=== PATIENT | male | born 1935 | race Caucasian/White ===

== ENCOUNTER 2018-04-05 07:50 | Day surgery (SDC) | payer MEDICARE, SELFPAY ==
[2018-04-05] VITALS (8 sets, daily range): BP systolic 86–164; BP diastolic 50–69; PULSE 49–58; RESP 16–18; TEMP 36.4–36.8; O2SAT 95–100; BMI 26.8
--- NOTE | 2018-04-05 | LES_PTH ---
PATIENT: JACOB JOLLY LOC: [facility] [place] U#:[id number] AGE/SX: 82/M ROOM: RE04/05/[address]: Dr. Marcos Newell MD : [id number] BED: DIS: 04/05/2018 SPEC #: [id number] RECD: 04/05/18 10:01 STATUS: WILSON REOpal #: [id number] ENEIDA: 04/05/18 00:[address]: Marcos Newell DEPT: SURGICAL PATHOLOGY RECD BY: Precious Pan ENTERED: 04/05/18 10:54 SP TYPE: Lesion OTHR DR: Out of Town Doctor Tissues: Skin of face, NOS Procedures: Frozen Section (charge) Surgery Specimen Level IV HEADER OPERATION: Excision of 3.5 cm x 2 cm ulcerated lesion of right mandaeism PRE-OP DIAGNOSIS: Ulcerated nonhealing lesion of right mandaeism TISSUE SUBMITTED: Ulcerated lesion right mandaeism FROZEN SECTION DIAGNOSIS Ulcerated lesion, right mandaeism, biopsy: Basal cell carcinoma, completely excised. SHAMA:kemal 04/05/18 MICROSCOPIC DIAGNOSIS Ulcerated lesion, right mandaeism, excisional biopsy: Basal cell carcinoma, completely excised. Mild actinic keratosis and solar elastosis. SHAMA:kemal 04/08/18 MICROSCOPIC DESCRIPTION Slides are reviewed. GROSS DESCRIPTION Received fresh for frozen section diagnosis labeled with the patient's name is a specimen designated ulcerated lesion right mandaeism. The specimen consists of a piece of workman-white skin ellipse measuring 3 x 1.8 x 0.3 cm. The specimen is inked, serially sectioned and submitted entirely for frozen section diagnosis in three cassettes. Cassette 1 contains the tips of skin ellipse. / SHAMA:kemal 04/05/18 TC:0 CPT: 66297, 24596
[2018-04-05 08:56] LABS: Bedside Glucose 118 mg/dL (70-110)
[2018-04-05] MEDS: Bacitracin 500 UNITS/GM PACKET (10:02)
--- NOTE | 2018-04-05 10:26 | PCM.OPRPT ---
Problem List (1) Basal cell carcinoma (BCC) of skin of face Status: Chronic Qualifiers: Basal cell carcinoma face location: other part of face Qualified Code(s): C44.319 - Basal cell carcinoma of skin of other parts of face Report of Operation Date of Procedure: 04/05/18 Pre-Operative Diagnosis: non-healing ulcerated lesion of right restorationist Post-Operative Diagnosis: basal cell carcinoma of right restorationist 2.0 x 3.5 cm Surgery/Procedure Performed:: Excision of malignant lesion of the face 2.0x3.5 cm Description of Surgical Findings:: Jhonny is an 82-year-old male who presents for evaluation of a nonhealing ulcerated lesion over the right restorationist. This is been nonhealing over the last several years and frequently would bleed onto his pillow. He reports a history of skin cancers which is attributed to his radiation treatment for acne in childhood and given the nonhealing nature of this lesion is suspicious appearance excision was advised for both relief of the chronic getting an ulceration and definitive evaluation and he was eager to proceed. The risks, alternatives, potential benefits, and complications were discussed at length and any questions answered to the patient and/or caregiver's satisfaction. Witnessed informed consent was obtained in the office, and the patient and/or caregiver was agreeable to proceed. Procedure went as follows: The patient was then offended proud of holding brought to the operating room was placed under monitored anesthesia care. When appropriate anesthesia obtained, the right restorationist was prepped and draped in usual sterile fashion. Using 1% lidocaine with 100,000 epinephrine the area was then injected with a total of 4 cc. After lying for vasoconstriction the large ulcerated lesion of the right restorationist was then marked in an ellipsoid pattern encompassing the ulcerated lesion that totaled 2 x 3.5 cm in size. This was then sharply incised with 15 blade scalpel and using an iris alert scissor the lesion then undermined over the temporalis fascia and excised. This was sent as pathologic specimen which was firm to be basal cell carcinoma that appeared completely excised. The wound was then undermined to allow for tension-free closure and then closed deeply with interrupted 3-0 Vicryl sutures. The skin was then closed with interrupted 4-0 Prolene sutures and bacitracin ointment applied. This completed the procedure and the patient was returned to recovery having tolerated the procedure well. Type of Anesthesia:: General Anesthesiologist: Marcos Mckeon Special Medications: none Specimen's removed: basal cell carcinoma of right restorationist Drains: none Estimated Blood Loss (mL): 0 mL Fluids Replaced: 700 mL Grafts/Implants Used: none - Complications none - Admit VTE Documentation VTE Present on Admission: No VTE Mechan Device Prophylaxis: None VTE Pharm Prophylaxis ordered?: No Reason prophylaxis not ordered:: Procedure Not Indicated
--- NOTE | 2018-04-05 10:31 | OP.PCM_ITS ---
Problem List (1) Basal cell carcinoma (BCC) of skin of face Status: Chronic Qualifiers: Basal cell carcinoma face location: other part of face Qualified Code(s): C44.319 - Basal cell carcinoma of skin of other parts of face Report of Operation Date of Procedure: 04/05/18 Pre-Operative Diagnosis: non-healing ulcerated lesion of right quaker Post-Operative Diagnosis: basal cell carcinoma of right quaker 2.0 x 3.5 cm Surgery/Procedure Performed:: Excision of malignant lesion of the face 2.0x3.5 cm Description of Surgical Findings:: Jhonny is an 82-year-old male who presents for evaluation of a nonhealing ulcerated lesion over the right quaker. This is been nonhealing over the last several years and frequently would bleed onto his pillow. He reports a history of skin cancers which is attributed to his radiation treatment for acne in childhood and given the nonhealing nature of this lesion is suspicious appearance excision was advised for both relief of the chronic getting an ulceration and definitive evaluation and he was eager to proceed. The risks, alternatives, potential benefits, and complications were discussed at length and any questions answered to the patient and/or caregiver's satisfaction. Witnessed informed consent was obtained in the office, and the patient and/or caregiver was agreeable to proceed. Procedure went as follows: The patient was then offended proud of holding brought to the operating room was placed under monitored anesthesia care. When appropriate anesthesia obtained, the right quaker was prepped and draped in usual sterile fashion. Using 1% lidocaine with 100,000 epinephrine the area was then injected with a total of 4 cc. After lying for vasoconstriction the large ulcerated lesion of the right quaker was then marked in an ellipsoid pattern encompassing the ulcerated lesion that totaled 2 x 3.5 cm in size. This was then sharply incised with 15 blade scalpel and using an iris alert scissor the lesion then undermined over the temporalis fascia and excised. This was sent as pathologic specimen which was firm to be basal cell carcinoma that appeared completely excised. The wound was then undermined to allow for tension-free closure and then closed deeply with interrupted 3-0 Vicryl sutures. The skin was then closed with interrupted 4-0 Prolene sutures and bacitracin ointment applied. This completed the procedure and the patient was returned to recovery having tolerated the procedure well. Type of Anesthesia:: General Anesthesiologist: Marcos Mckeon Special Medications: none Specimen's removed: basal cell carcinoma of right quaker Drains: none Estimated Blood Loss (mL): 0 mL Fluids Replaced: 700 mL Grafts/Implants Used: none - Complications none - Admit VTE Documentation VTE Present on Admission: No VTE Mechan Device Prophylaxis: None VTE Pharm Prophylaxis ordered?: No Reason prophylaxis not ordered:: Procedure Not Indicated
--- NOTE | 2018-04-05 10:34 | DCINST_ITS ---
- Discharge Diagnoses Current Active Problems: Current Active and Chronic Problems Basal cell carcinoma (BCC) of skin of face (Chronic) You will use the following diet at home:: No restrictions Discharge Activity: Return to Normal Activity Call your doctor if your incision/area has: Continuous Slow Oozing, Foul Smelling Discharge, Swelling at the incision site Call your doctor if you observe: Fever of 101 or Higher, Uncontrolled pain Allergies/Adverse Reactions: Allergies Penicillins [PCN] Allergy (Verified 04/05/18 08:29) Rash Medications to take at Discharge Allopurinol 100 mg PO DAILY 04/03/18 Amlodipine [Norvasc] 5 mg PO DAILY 04/03/18 Cholecalciferol (Vitamin D3) [Vitamin D3] 5,000 unit PO QODAY 04/03/18 Ibuprofen 200 mg PO PRN PRN 04/03/18 Insulin Human 75/25 [Humalog Mix 75-25 Kwikpen] 16 unit SQ BID 04/03/18 Loperamide [Imodium] 2 mg PO Q2H PRN PRN 04/03/18 Losartan Potassium [Cozaar] 25 mg PO DAILY 04/03/18 Psyllium [Metamucil] 1 packet PO BID 04/03/18 Primary Care Physician: [facility] Doctor,Out of [Primary Care Provider] - Test Results: Test results from this visit will be discussed in further detail at your follow- up appointment, if applicable. Please Follow Up With: Marcos Newell MD When: 2 weeks
== END 2018-04-05 12:17 | disposition home or self-care (01) ==
LOC: SDC 07:52 → AC 07:54
PROVIDERS: Referring Provider Otolaryngology; Visit Provider Otolaryngology
PROC: (CPT 11644; principal; 2018-04-05 09:05)
DX: C44.319 Basal cell carcinoma of skin of other parts of face (principal); L03.211 Cellulitis of face; I10 Essential (primary) hypertension; N28.9 Disorder of kidney and ureter, unspecified; E11.9 Type 2 diabetes mellitus without complications; K21.9 Gastro-esophageal reflux disease without esophagitis; M17.0 Bilateral primary osteoarthritis of knee; Z79.4 Long term (current) use of insulin; Z79.899 Other long term (current) drug therapy; Z87.891 Personal history of nicotine dependence; Z85.048 Personal history of other malignant neoplasm of rectum, rectosigmoid junction, and anus
CPT/HCPCS: 11644; 12052; 82962; 88305; 88331; J7120; J2405